=== PATIENT | female | born 1985 | race Caucasian/White ===

== ENCOUNTER 2024-11-16 17:55 | Emergency (ER) | payer MEDICAID, SELFPAY ==
[2024-11-16 17:58] VITALS: BP 138/92; PULSE 74; RESP 18; TEMP 36.7; O2SAT 97
[2024-11-16 18:43] LABS: Abs Immature Grans 0.03 10^3/uL (0.0-0.06); HCT 37.6 % (36.0-46.0); HGB 12.1 g/dL (11.2-15.7); Immature Grans % 0.3 %; MCH 28.3 pg (27.0-33.0); MCHC 32.2 % (32.0-36.0); MCV 88 fL (80-95); MPV 9.0 fL (8.0-11.0); Platelet Count 308 10^3/uL (130-400); RBC 4.27 10^6/uL (3.93-5.22); RDW 14.1 % (11.7-14.6); RDW-SD 45.6 fL; WBC 10.50 10^3/uL (4.4-10.8)
--- NOTE | 2024-11-16 18:55 | W.ED.GENAD ---
Discharge Plan Disposition Patient Disposition: Home Condition: Stable Discharge Details Clinical Impression: Abnormal vaginal bleeding Primary Care Provider: Unknown,Unknown ED Provider: Naida Whitaker Home Meds and New Rx's Prescriptions: Continued ketoconazole 2 % cream 1 applic topical BID Qty: 60 0RF liothyronine 5 mcg tablet 5 mcg PO DAILY famotidine 20 mg tablet 20 mg PO DAILY folic acid 1 mg tablet 1 mg PO DAILY albuterol 90 mcg/actuation aerosol inhalation lysine 500 mg tablet 500 mg PO DAILY topiramate 100 mg tablet 100 mg PO DAILY fluoxetine 20 mg capsule 20 mg PO DAILY lamotrigine 100 mg tablet 100 mg PO DAILY levothyroxine 137 mcg capsule 137 mcg PO DAILY spironolactone [Aldactone] 25 mg tablet 25 mg PO DAILY naltrexone 50 mg tablet 50 mg PO DAILY Discharge Instructions Instructions: Absent or irregular periods, Heavy Periods ED Additional Instructions: At this time there is no evidence that you were having any emergent need for blood transfusion. Please follow-up with [facility] or [facility] for further evaluation, Pap smear,, and care. Please keep your scheduled procedure on Thursday. Please return to the emergency department if you soak through more than 2 pads an hour, have racing heart rate, dizzy lightheadedness or feel like you are going to faint. Follow up with primary care provider in 3-5 days. Return to ED sooner if any worsening or concerns. Thank you for allowing us to care for you today. Referrals: [facility] [Provider Group] Referral Note: ER follow-up call for an appointment Clinical Impression: Abnormal vaginal bleeding Primary Care Provider [Outside] HPI General Mode of arrival: ambulatory. Date/Time Provider Initiated Documentation: 11/16/24 17:58. Limitations to Documentation: no limitations. Information obtained by: patient, RN notes reviewed and old records reviewed. HPI Narrative: 39-year-old female presents to the ER with chief complaint of abnormal vaginal bleeding over the last 3 days. She reports starting Thursday she began bleeding with clots, reports 3 pads today, no significant abdominal cramping. Is scheduled [place] [facility] Has not had a [employer] pap smear since 2016. Hx of HPV and Cervical leeep procedure in 2016. On exam A & O x 4, VSS, Reports intermittant Abd pain. Denies fever or chills, denies any dysuria or problems urinating denies any diarrhea Reba. Does endorse some constipation. Patient does have a history of obesity. She is allergic to latex hypothyroidism, GERD Related Data Home Medications ?Medication ?Instructions ?Recorded ?Confirmed albuterol 90 mcg/actuation aerosol mcg inhalation 10/06/24 10/06/24 inhaler famotidine 20 mg tablet 20 mg PO DAILY 10/06/24 11/16/24 fluoxetine 20 mg capsule 20 mg PO DAILY 10/06/24 11/16/24 folic acid 1 mg tablet 1 mg PO DAILY 10/06/24 11/16/24 ketoconazole 2 % topical cream 1 applic topical BID #60 grams 10/06/24 11/16/24 lamotrigine 100 mg tablet 100 mg PO DAILY 10/06/24 11/16/24 levothyroxine 137 mcg capsule 137 mcg PO DAILY 10/06/24 11/16/24 liothyronine 5 mcg tablet 5 mcg PO DAILY 10/06/24 11/16/24 lysine 500 mg tablet 500 mg PO DAILY 10/06/24 11/16/24 topiramate 100 mg tablet 100 mg PO DAILY 10/06/24 11/16/24 naltrexone 50 mg tablet 50 mg PO DAILY 11/16/24 11/16/24 spironolactone 25 mg tablet 25 mg PO DAILY 11/16/24 11/16/24 (Aldactone) Previous Rx's ?Medication ?Instructions ?Recorded ketoconazole 2 % topical cream 1 applic topical BID #60 grams 10/06/24 Allergies Allergy/AdvReac Type Severity Reaction Status Date / Time latex Allergy Itching Verified 11/16/24 18:01 clonazepam AdvReac Agitation Verified 11/16/24 18:01 General Stated Complaint: GenMedical CRISTIANA: 3 Review of Systems All systems reviewed & are unremarkable except as noted in HPI and below Constitutional Constitutional: Reports as per HPI, Denies chills and Denies fever(s) Gastrointestinal Gastrointestinal: Reports abdominal pain (Mild cramping) Genitourinary Genitourinary: Reports as per HPI and Reports abnormal vaginal bleeding Exam Narrative Exam Narrative: Constitutional: Alert and oriented x3. Appears stated age. Morbidly obese. Body habitus. Head: Normocephalic, no trauma. Eyes: Pupils PERRL, Red reflex noted, EOM's intact. Eyelids symmetrical without lesions, discharge, or swelling. ENT: Bilateral TM's WNL, External ear normal to inspection, no mastoid TTP, swelling, or erythema, Nasal turbinates WNL, no nasal discharge. Normal dentition, Posterior pharynx WNL, no exudate. Chest: RRR, Normal S1, S2, distal pulses intact. Resp: Lungs clear to auscultation bilaterally, no wheezes, rales, or rhonchi. Abdomen: Soft, non-distended, Normoactive bowel sounds all 4 quads. Musculoskeletal: Normal gait, Moves all 4 extremities without difficulty. Skin: No suspicious rashes or lesions. Capillary refill less than 2 sec. Neurologic: Cranial nerves II-XII intact. Alert and oriented x 3. Motor: No deficits noted. Hematologic/Lymphatic: No ecchymosis, no lymphadenopathy. Course Vital Signs Vital signs: Vital Signs Temperature 36.7 C 11/16/24 17:58 Pulse 74 11/16/24 17:58 Respiratory Rate 18 11/16/24 17:58 Blood Pressure 138/92 H 11/16/24 17:58 Pulse Oximetry 97 11/16/24 17:58 Temperature 36.7 C 11/16/24 17:58 Temperature Source Temporal Artery Scan 11/16/24 17:58 Pulse 74 11/16/24 17:58 Respiratory Rate 18 11/16/24 17:58 Blood Pressure 138/92 H 11/16/24 17:58 Pulse Oximetry 97 11/16/24 17:58 Oxygen Delivery Method Room Air 11/16/24 17:58 Oxygen Flow Rate 0 11/16/24 17:58 Pain Level 0 11/16/24 17:58 Lab/Test Results Lab/Test Results: Laboratory Tests Range/Units 11/16/24 18:30 WBC (4.4-10.8) 10^3/uL 10.50 RBC (3.93-5.22) 10^6/uL 4.27 Hgb (11.2-15.7) g/dL 12.1 Hct (36.0-46.0) % 37.6 MCV (80-95) fL 88 MCH (27.0-33.0) pg 28.3 MCHC (32.0-36.0) % 32.2 RDW (11.7-14.6) % 14.1 Plt Count (130-400) 10^3/uL 308 MPV (8.0-11.0) fL 9.0 Immature Gran % % 0.3 Neutrophils % % 60.1 Lymphocytes % % 32.3 Monocytes % % 5.6 Eosinophils % % 1.2 Basophils % % 0.5 Nucleated RBC % (0.0-0.3) % 0.0 Absolute Neutrophils (1.2-6.7) 10^3/uL 6.31 Absolute Lymphocytes (1.2-3.4) 10^3/uL 3.39 Absolute Monocytes (0.1-0.8) 10^3/uL 0.59 Absolute Eosinophils (0.0-0.7) 10^3/uL 0.13 Absolute Basophils (0.0-0.2) 10^3/uL 0.05 Medical Decision Making 39-year-old female presents to the ER with chief complaint of abnormal vaginal bleeding over the last 3 days. She reports starting Thursday she began bleeding with clots, reports 3 pads today, no significant abdominal cramping. Is scheduled [place] [facility] Has not had a [employer] pap smear since 2016. Hx of HPV and Cervical leeep procedure in 2016. On exam A & O x 4, VSS, Reports intermittant Abd pain. Denies fever or chills, denies any dysuria or problems urinating denies any diarrhea . Does endorse some constipation. Patient does have a history of obesity. She is allergic to latex hypothyroidism, GERD Labs ordered including CBC PT serum hCG Qual. CBC shows hemoglobin 12.1 hematocrit 37.6 Expected disposition is discharge with follow-up with [facility], encouraged to keep previously scheduled procedure. No tachycardia, no pallor. PT 11.3, INR 1.1 PTT 31.1 BUN slightly elevated at creatinine 1.2, do not have any history labs in chart hCG is negative. At this time I do feel it is safe for patient to be discharged home. Will instruct on home care increasing oral fluids and iron rich foods. Will discuss strict return instructions to return for any vaginal bleeding soaking through more than 2 pads an hour, worsening abdominal pain or further concerns. This text was generated using [employer] system, please disregard any oddities of phrase or misspellings. Lab Data Lab results reviewed: Yes I reviewed the patient's lab results. Labs: Laboratory Tests Range/Units 11/16/24 11/16/24 18:30 18:43 WBC (4.4-10.8) 10^3/uL 10.50 RBC (3.93-5.22) 10^6/uL 4.27 Hgb (11.2-15.7) g/dL 12.1 Hct (36.0-46.0) % 37.6 MCV (80-95) fL 88 MCH (27.0-33.0) pg 28.3 MCHC (32.0-36.0) % 32.2 RDW (11.7-14.6) % 14.1 Plt Count (130-400) 10^3/uL 308 MPV (8.0-11.0) fL 9.0 Immature Gran % % 0.3 Neutrophils % % 60.1 Lymphocytes % % 32.3 Monocytes % % 5.6 Eosinophils % % 1.2 Basophils % % 0.5 Nucleated RBC % (0.0-0.3) % 0.0 Absolute Neutrophils (1.2-6.7) 10^3/uL 6.31 Absolute Lymphocytes (1.2-3.4) 10^3/uL 3.39 Absolute Monocytes (0.1-0.8) 10^3/uL 0.59 Absolute Eosinophils (0.0-0.7) 10^3/uL 0.13 Absolute Basophils (0.0-0.2) 10^3/uL 0.05 PT (9.1-11.1) sec 11.3 H INR (0.9-1.1) 1.1 APTT (20.6-30.2) sec 31.1 H Sodium (136-145) mmol/L 140 Potassium (3.5-5.1) mmol/L 3.9 Chloride (98-107) mmol/L 106 Carbon Dioxide (21.0-32.0) mmol/L 27.2 Anion Gap (3-11) mmol/L 6.8 BUN (7-18) mg/dL 20 H Creatinine (0.55-1.02) mg/dL 1.2 H Est GFR (CKD-EPI 2020) (mL/min/1.73m2) 59.05 Glucose (74-106) mg/dL 98 Calcium (8.5-10.1) mg/dL 9.6 Serum HCG, Qual Negative PFSH All Active Problems (Updated 11/16/24 @ 19:18 by Naida Whitaker NP) Abnormal vaginal bleeding (Acute) Social History Smoking/Tobacco Use Status: Never Smoking risk assessment performed?: Yes Alcohol Intake: never Substance use type: does not use Housing: house Do you feel safe at home: Yes Do you feel safe in your relationship?: Yes
[2024-11-16 18:57] LABS: Anion Gap 6.8 mmol/L (3-11); BUN 20 mg/dL (7-18); CO2 27.2 mmol/L (21.0-32.0); Calcium 9.6 mg/dL (8.5-10.1); Chloride 106 mmol/L (98-107); Estimated GFR 59.05 (mL/min/1.73m2); Glucose 98 mg/dL (74-106); Potassium 3.9 mmol/L (3.5-5.1); Sodium 140 mmol/L (136-145)
[2024-11-16 19:01] LABS: INR 1.1 (0.9-1.1); PTT Activated 31.1 sec (20.6-30.2); Prothrombin Time 11.3 sec (9.1-11.1)
[2024-11-16 19:06] LABS: HCG Qual (Serum) Negative
[2024-11-16 19:27] VITALS: BP 116/52; PULSE 72; RESP 18; O2SAT 99
[2024-11-16 19:34] VITALS: BP 120/80; PULSE 70; RESP 18; TEMP 36.8; O2SAT 98
== END 2024-11-16 19:42 | disposition home or self-care (01) ==
PROVIDERS: Emergency Provider Registered Nurse Emergency
DX: N93.9 Abnormal uterine and vaginal bleeding, unspecified (principal)
CPT/HCPCS: 99283 ×2; 36415; 80048; 84703; 85025; 85610; 85730